=== PATIENT | male | born 1960 | race Caucasian/White ===

== ENCOUNTER 2022-01-05 17:44 | Emergency (ER) | payer BC ==
--- OUTSIDE RECORDS SUMMARY | 2022-01-05 17:48 | XMS REPORT | Continuity of Care Document ---
:1960 Author Organization [facility] Address [address] [place] [address] [address] [place] [address] Care Team Providers Name Role Phone MALIA Primary Care Physician Unavailable Carolyne MITCHELL Attending Clinician Unavailable MALIA Attending Clinician Unavailable MALIA Admitting Clinician Unavailable Payers Payer Name Policy Type Policy Number Effective Date Expiration Date S lilia [facility] - [id number] 2020 00:00:00 OUT OF STATE Problems This patient has no known problems. Allergies, Adverse Reactions, Alerts Allergy Allergy Status Severity Reaction(s) Onset Inactive Treating Comm ents Source Name Type Date Date Clinician NO KNOWN Drug Active Univers ALLERGIE [facility] Medications This patient has no known medications. Procedures This patient has no known procedures. Encounters Start End Encounter Admission Attending Care Care Encounter Source Date/Time Date/Time Type Type Clinicians Facility Department ID 2021-01-15 2021-01-15 Outpatient Missael MITCHELL [facility] [id number] [facility] 12:40:00 12:40:00 [facility] 2017-12-13 2017-12-13 Outpatient Benitez FINLEY, [facility] [id number] [facility] 20:59:00 20:59:00 [facility] Results Test Description Test Time Test Comments Results Result Comments Source Comprehensive Metabolic Panel 2017-12-13 22:34:00 Test Item Value Reference Range Interpretation Comme nts Sodium (test code = NA) 137 mmol/L 135-145 N Potassium (test code = K) 3.9 mmol/L 3.5-5.1 N Chloride (test code = CL) 98 mmol/L 98-105 N Carbon Dioxide (test code = 22 mmol/L 22-29 N CO2) Glucose (test code = GLU) 88 mg/dL 70-115 N Blood Urea Nitrogen (test 19 mg/dL 6-20 N code = BUN) Creatinine (test code = 1.2 mg/dL 0.7-1.2 N CREAT) Calcium (test code = CA) 9.9 mg/dL 8.3-10.5 N Prot Total (test code = TP) 7.5 g/dL 6.4-8.3 N Albumin (test code = ALB) 4.8 g/dL 3.5-5.2 N A/G Ratio (test code = 1.8 Ratio AGRATIO) Globulin (test code = GLOB) 2.7 2.9-3.1 L Bili Total (test code = 0.5 mg/dL 0.1-0.9 N TBIL) Alk Phos (test code = 31 U/L 40-129 L APHOS) AST (test code = AST) 21 U/L 1-40 N ALT (test code = ALT) 39 U/L 1-41 N BUN/Creatinine Ratio (test 15.8 code = BCRATIO) Anion Gap (test code = 17 mmol/L 7-16 H AGAP) Estimated GFR (test code = >60 mL/min/1.73m2 eGFR (estimated Glomerular GFR) Filtration Rate ) is an estimated value ,calculated from the patien t's serum creatinine usin g the MDRD equation.It is NOT the patient's actua l GFR. The eGFR provides a more clinicallyusefu l measure of kidney disease than serum creatinine jairo e.This calculation gigi es sex and race into accou nt, if the informationis p rovided. If the race is not provided, and the patient isAfrican-Ameri can, multiply by 1.212. If se x is not provided, and t hepatient is female, multipl y by 0.742. Results for pat ients <18 years ofage hav e not been validated by th e MDRD study and should be i nterpretedwith caution.eGFR Re sult Interpretation: eGFR > or = 60 is in the Vernell l RangeeGFR < 60 may mean kid winter diseaseeGFR < 1 5 may mean kidney failure* Ranges recommended by the National Kidney Foundation,http ://nkdep.nih.g ov Lipid [id number] 22:34:00 Test Item Value Reference Range Interpretation Comments Cholesterol (test 190 mg/dL 0-200 N code = CHOL) Triglycerides (test 155 mg/dL 9-200 N code = TRIG) HDL (test code = 41 mg/dL 40-60 N HDL) Chol/HDL (test code 4.6 Ratio 0.0-5.0 N = CHOLPHDL) LDL, Calculated 118 mg/dL 0-130 N (NOTE)RISK O F HEART (test code = LDLC) DISEASEPu blished by [place] Heart AssociationAnal yte Optim al Boderline Increased RiskC HOL <200 200-239 >240TRI G <150 150-199 >200HDL Male: >60 <40HDL Female: >60 <50 LDL < 100 130-15 9 >160 LDL NEAR OPTIMAL IS 100- 129 VLDL (test code = 31 mg/dL 5-40 N VLDL) LDL/HDL (test code = 3 LDLPHDL) CBC with [id number] 22:24:00 Test Item Value Reference Range Interpretation Comments WBC (test code = WBC) 9.7 K/cumm 4.4-10.5 N RBC (test code = RBC) 5.24 M/cumm 4.10-5.70 N Hemoglobin (test code = HGB) 15.8 gm/dL 13.4-17.4 N Hematocrit (test code = HCT) 48.4 % 38.7-52.0 N MCV (test code = MCV) 92.4 fL 80-100 N MCH (test code = MCH) 30.2 pg 27.0-32.5 N MCHC (test code = MCHC) 32.7 g/dL 32.0-37.5 N RDW (test code = RDW) 12.9 % 11.5-14.5 N Platelet Count (test code = 328 K/cumm 140-440 N PLTCT) MPV (test code = MPV) 8.1 fL Diff Method (test code = DIFFM) Auto Neutrophil (test code = NEUT) 58.9 % 36-70 N Lymphocyte (test code = LYMPH) 32.8 % 12-44 N Monocyte (test code = MONO) 5.7 % 0-11 N Eosinophil (test code = EOS) 1.7 % 0-7 N Basophil (test code = BASO) 1.0 % 0-2 N Neutro Abs (test code = ANEUT) 5.7 K/cumm 1.6-7.4 N Lymph Abs (test code = ALYMPH) 3.2 K/cumm 0.5-4.6 N Wallace Abs (test code = AMONO) 0.6 K/cumm 0.0-1.2 N Eos Abs (test code = AEOS) 0.16 K/cumm 0.00-0.74 N Baso Abs (test code = ABASO) 0.1 K/cumm 0.00-0.21 N
--- NOTE | 2022-01-05 19:33 | RAD REPORT ---
EXAM DESCRIPTION: RAD - Knee Left 3 View - 01/05/2022 7:19 pm CLINICAL HISTORY: Left knee pain status post injury FINDINGS: No fracture or dislocation is seen. Large patellar spurs. If patient continues to symptoms to suggest occult fracture, ligamentous or meniscal injury then MRI would be recommended
--- NOTE | 2022-01-05 21:18 | RAD REPORT ---
EXAM DESCRIPTION: CT - Knee Left Wo Con - 01/05/2022 8:58 pm CLINICAL HISTORY: Left knee pain and swelling status post injury COMPARISON: X-ray January 05, 2022 TECHNIQUE: Computed axial tomography left obtained All CT scans are performed using dose optimization technique as appropriate and may include automated exposure control or mA/KV adjustment according to patient size. FINDINGS: Sclerosis involves the posterior aspect of the medial tibial plateau. There appears to be mild depression. A fracture line is not visualized. Three bony/calcific densities lie adjacent to the posterosuperior aspect of the patella. They have a corticated border and presumably are chronic. No dislocation Small joint effusion Large spurs extend off of the anterior aspect of the patella. Edema is present within the anterior subcutaneous tissues. IMPRESSION: Sclerosis involves the posterior aspect of the medial tibial plateau with mild depressio n. This is equivocal for an acute fracture. MRI is recommended for further evaluation.
--- NOTE | 2022-01-05 21:51 | EDPHYS ---
Physician Documentation [facility] Name: Fady Manzo Jr Age: 61 yrs Sex: Male : 1960 Arrival Date: 01/05/2022 Time: 18:01 Bed 8 Private MD: ED Physician Caleb Carmona HPI: 01/05 21:23 This 61 yrs old Male presents to ER via EMS with complaints of Knee Injury. jr8 21:23 Onset: The symptoms/episode began/occurred acutely, today. The patient has not jr8 experienced similar symptoms in the past. The patient has not recently seen a physician. This is a 61-year-old male patient that was coming down the stairs and misstepped causing rotation of his left knee. Mascot an immediate pop with pain, swelling, deformity. Denies any other injury at this time.. Historical: - Allergies: 18:29 No Known Allergies; jg9 - PMHx: 18:29 Hypertensive disorder; jg9 - Immunization history:: Client reports receiving the 2nd dose of the Covid vaccine, [employer] Pneumococcal vaccine is not up to date, Flu vaccine is up to date. - Social history:: Smoking status: Patient/guardian denies using tobacco, the patient reports quitting approximately 10 years ago. ROS: 21:23 Eyes: Negative for injury, pain, redness, and discharge, ENT: Negative for injury, jr8 pain, and discharge, Neck: Negative for injury, pain, and swelling, Cardiovascular: Negative for chest pain, palpitations, and edema, Respiratory: Negative for shortness of breath, cough, wheezing, and pleuritic chest pain, Abdomen/GI: Negative for abdominal pain, nausea, vomiting, diarrhea, and constipation, Back: Negative for injury and pain, Skin: Negative for injury, rash, and discoloration, Neuro: Negative for headache, weakness, numbness, tingling, and seizure. 21:23 MS/extremity: Positive for decreased range of motion, pain, swelling, tenderness, of the left leg. Exam: 21:23 Constitutional: This is a well developed, well nourished patient who is awake, alert, jr8 and in no acute distress. Head/Face: Normocephalic, atraumatic. Neck: Trachea midline, no thyromegaly or masses palpated, and no cervical lymphadenopathy. Supple, full range of motion without nuchal rigidity, or vertebral point tenderness. No Meningismus. Cardiovascular: Regular rate and rhythm with a normal S1 and S2. No gallops, murmurs, or rubs. Normal PMI, no JVD. No pulse deficits. Respiratory: Lungs have equal breath sounds bilaterally, clear to auscultation and percussion. No rales, rhonchi or wheezes noted. No increased work of breathing, no retractions or nasal flaring. Abdomen/GI: Soft, non-tender, with normal bowel sounds. No distension or tympany. No guarding or rebound. No evidence of tenderness throughout. Back: No spinal tenderness. No costovertebral tenderness. Full range of motion. Skin: Warm, dry with normal turgor. Normal color with no rashes, no lesions, and no evidence of cellulitis. Neuro: Awake and alert, GCS 15, oriented to person, place, time, and situation. Cranial nerves II-XII grossly intact. Motor strength 5/5 in all extremities. Sensory grossly intact. 21:23 Musculoskeletal/extremity: Extremities: grossly normal except: noted in the left leg: Patient has mild tenderness to the anterior patella and medial aspect of the left knee with moderate knee effusion present. Decreased range of motion secondary to pain and swelling. 2+ DP pulses present bilaterally with normal sensation., Circulation is intact in all extremities. Sensation intact. Vital Signs: 18:26 BP 133 / 77; Pulse 85; Resp 17 S; Temp 98.7(O); Pulse Ox 97% on R/A; Weight 127.01 kg j9 (R); Height 5 ft. 8 in. (172.72 cm) (R); Pain 0/10; 19:31 BP 134 / 85; Pulse 81; Resp 18 S; Pulse Ox 99% on R/A; as6 20:49 BP 135 / 91; Pulse 78; Resp 18 S; Pulse Ox 96% on R/A; as6 18:26 Body Mass Index 42.57 (127.01 kg, 172.72 cm) jg9 Procedures: 21:23 Splinting: Splint applied to left leg using knee immobilizer, applied by nurse. jr8 Examined by me, post splint application: neurovascular intact, 2+ distal pulses palpable, brisk capillary refill noted, Patient tolerated well. MDM: 18:27 Patient medically screened. jr8 21:23 Data reviewed: vital signs, nurses notes, radiologic studies, plain films. Data jr8 interpreted: Pulse oximetry: on room air is 96 %. Interpretation: normal. Counseling: I had a detailed discussion with the patient and/or guardian regarding: the historical points, exam findings, and any diagnostic results supporting the discharge/admit diagnosis, radiology results, the need for outpatient follow up, a orthopedic surgeon, to return to the emergency department if symptoms worsen or persist or if there are any questions or concerns that arise at home. 01/05 18:40 Order name: Knee Left 3 View XRAY; Complete Time: 19:36 jr8 01/05 20:31 Order name: Knee Left Wo Con; Complete Time: 21:19 EDMS 01/05 21:23 Order name: Knee Immobilizer; Complete Time: 22:52 jr8 01/05 21:23 Order name: Crutches; Complete Time: 22:52 jr8 Administered Medications: No medications were administered Disposition: 01/06 07:05 Co-signature as Attending Physician, Caleb Carmona MD. rn Disposition Summary: 01/05/22 21:50 Discharge Ordered Location: Home jr8 Problem: new jr8 Symptoms: have improved jr8 Condition: Stable jr8 Diagnosis - Proximal tibia fracture jr8 Followup: jr8 - With: Gopal Rawls MD - When: 2 - 3 days - Reason: Recheck today's complaints, Continuance of care, Re-evaluation by your physician Discharge Instructions: - Discharge Summary Sheet jr8 - Tibial Fracture, Adult jr8 Forms: - Medication Reconciliation Form jr8 - Thank You Letter jr8 - Antibiotic Education jr8 - Prescription Opioid Use jr8 Prescriptions: - Ibuprofen 800 mg Oral Tablet - take 1 tablet by ORAL route every 12 hours As needed take with food; 20 tablet; jr8 Refills: 0, Product Selection Permitted - Tylenol-Codeine #3 300 mg-30 mg Oral - take 2 tablet by ORAL route every 8 hours As needed; 20 tablet; Refills: 0, jr8 Product Selection Permitted Signatures: Dispatcher [employer] Caleb Dodge MD MD rn Roszak, Josh, PA PA jr8 Danita Zeng RN RN jg9
--- NOTE | 2022-01-05 21:51 | ER ---
Nurse's Notes [facility] Name: Fady Manzo Jr Age: 61 yrs Sex: Male : 1960 Arrival Date: 01/05/2022 Time: 18:01 Bed 8 Private MD: Diagnosis: Proximal tibia fracture Presentation: 01/05 18:26 Chief complaint: Patient states: I was walking down the stairs when I got to the [facility] from the bottom step and I stepped off wrong twisting my knee and causing discomfort-deformity noted at bedside, patient in leg splint performed by EMS, MSP's in tact, pain is minimal at rest 10/10 with movement, no associated injuries. Coronavirus screen: Vaccine status: Patient reports receiving the 2nd dose of the covid vaccine. Pfizer. Ebola Screen: Patient negative for fever greater than or equal to 101.5 degrees Fahrenheit, and additional compatible Ebola Virus Disease symptoms Patient denies exposure to infectious person. Patient denies travel to an Ebola-affected area in the 21 days before illness onset. Initial Sepsis Screen: Does the patient meet any 2 criteria? No. Patient's initial sepsis screen is negative. Does the patient have a suspected source of infection? No. Patient's initial sepsis screen is negative. Risk Assessment: Do you want to hurt yourself or someone else? Patient reports no desire to harm self or others. Onset of symptoms was January 05, 2022. 18:26 Method Of Arrival: EMS: [facility] 18:26 Acuity: ARTURO 4 jg9 Triage Assessment: 18:30 General: Appears in no apparent distress. Behavior is calm, Smells of. Pain: Denies jg9 pain. Musculoskeletal: Reports pain in left leg-knee patient reports pain in left knee when he attempts to move it otherwise he is not having any pain at rest. Injury Description: missed a step and twisted his knee. Historical: - Allergies: 18:29 No Known Allergies; jg9 - PMHx: 18:29 Hypertensive disorder; jg9 - Immunization history:: Client reports receiving the 2nd dose of the Covid vaccine, Pfizer Pneumococcal vaccine is not up to date, Flu vaccine is up to date. - Social history:: Smoking status: Patient/guardian denies using tobacco, the patient reports quitting approximately 10 years ago. Screenin:31 Abuse screen: Denies threats or abuse. Denies injuries from another. Nutritional jg9 screening: No deficits noted. Tuberculosis screening: No symptoms or risk factors identified. Fall Risk Fall in past 12 months (25 points). Assessment: 18:31 Reassessment: No changes from previously documented assessment. jg9 19:32 Reassessment: Patient appears in no apparent distress at this time. Patient and/or as6 family updated on plan of care and expected duration. Pain level reassessed. 20:49 General: Appears in no apparent distress. pt being taken to CT. as6 22:52 Reassessment: Patient appears in no apparent distress at this time. No changes from lg3 previously documented assessment. Patient and/or family updated on plan of care and expected duration. Pain level reassessed. Patient is alert, oriented x 3, equal unlabored respirations, skin warm/dry/pink. Vital Signs: 18:26 BP 133 / 77; Pulse 85; Resp 17 S; Temp 98.7(O); Pulse Ox 97% on R/A; Weight 127.01 kg jg9 (R); Height 5 ft. 8 in. (172.72 cm) (R); Pain 0/10; 19:31 BP 134 / 85; Pulse 81; Resp 18 S; Pulse Ox 99% on R/A; as6 20:49 BP 135 / 91; Pulse 78; Resp 18 S; Pulse Ox 96% on R/A; as6 18:26 Body Mass Index 42.57 (127.01 kg, 172.72 cm) j9 ED Course: 18:01 Patient arrived in ED. jg9 18:21 Danita Zeng, MARYAM is Primary Nurse. jg9 18:27 Hakan Parra PA is PHCP. jr8 18:27 Caleb Carmona MD is Attending Physician. jr8 18:29 Triage completed. jg9 18:31 Pt visited by . jg9 18:31 Arm band placed on right wrist. jg9 18:31 Patient has correct armband on for positive identification. Bed in low position. Call j9 light in reach. 19:19 Knee Left 3 View XRAY In Process Unspecified. EDMS 20:59 Knee Left Wo Con In Process Unspecified. EDMS 21:50 Gopal Rawls MD is Referral Physician. jr8 22:52 No provider procedures requiring assistance completed. Patient did not have IV access lg3 during this emergency room visit. Administered Medications: No medications were administered Outcome: :50 Discharge ordered by . jr8 22:52 Discharged to home via wheelchair, with crutches, with significant other. lg3 22:52 Condition: stable 22:52 Discharge instructions given to patient, Instructed on discharge instructions, follow up and referral plans. medication usage, Prescriptions given X 2. 22:53 Patient left the ED. lg3 Signatures: Dispatcher [employer] EDMS Hakan Parra PA PA jr8 Jennifer Dahl RN RN lg3 Severino Tatum, RN RN as6 Danita Zeng RN RN jg9
[2022-01-06 00:55] VITALS: TEMP 98.7
[2022-01-06 01:02] VITALS: BP 135/91; O2SAT 96
== END 2022-01-05 22:53 | disposition home or self-care (01) ==
LOC: ER 17:44
DX: S82.102A Unspecified fracture of upper end of left tibia, initial encounter for closed fracture (principal); X50.1XXA Overexertion from prolonged static or awkward postures, initial encounter; Y93.01 Activity, walking, marching and hiking; I10 Essential (primary) hypertension
CPT/HCPCS: 73700; 99283